=== PATIENT | male | born 1975 | race Caucasian/White ===

== ENCOUNTER 2017-11-04 11:53 | Emergency (ER) | payer MEDICAID, OTHER ==
[~2017-11-04] VITALS: Wt 72.6 kg
[2017-11-04 13:13] LABS: BASOPHILS % 0.6 % (0.0-2.0); EOSINOPHILS # 0.1 10^3/ul (0.0-0.5); EOSINOPHILS % 1.7 % (0.0-7.0); HEMATOCRIT 38.7 % (42.0-52.0); LYMPHOCYTES # 2.3 10^3/ul (0.8-2.9); LYMPHOCYTES % 42.7 % (15.0-51.0); MEAN CORPUSCULAR HEMOGLOBIN 31.7 pg (29.0-33.0); MEAN CORPUSCULAR HGB CONC 36.2 g/dl (32.0-37.0); MEAN CORPUSCULAR VOLUME 87.8 fl (82.0-101.0); MEAN PLATELET VOLUME 8.8 fl (7.4-10.4); MONOCYTE # 0.4 10^3/ul (0.3-0.9); MONOCYTES % 8.1 % (0.0-11.0); NEUTROPHIL # 2.5 10^3/ul (1.6-7.5); NEUTROPHILS % 46.3 % (39.0-77.0); PLATELET COUNT 330 10^3/UL (140-415); RED BLOOD COUNT 4.41 10^6/ul (4.70-6.10); RED CELL DISTRIBUTION WIDTH 11.9 % (11.5-14.5); WHITE BLOOD COUNT 5.4 10^3/ul (4.8-10.8)
--- NOTE | 2017-11-04 13:15 | RADRPT ---
PROCEDURE: XR Chest. CLINICAL INDICATION: Cough TECHNIQUE: Single portable view of the chest was obtained COMPARISON: No priors for comparison FINDINGS: The trachea is midline. The cardiac silhouette is enlarged and pulmonary vascularity are within norm al limits. The lungs are clear. The costophrenic angles are sharp. IMPRESSION: 1. Cardiomegaly. No evidence of acute cardiopulmonary disease. RPTAT: AAPP Physician Ronnie Date Time Electronically viewed and signed by Eber Fong Physician on 11/04/2017 13:14 JL/
[2017-11-04 13:32] LABS: ALBUMIN 4.1 g/dl (3.3-4.9); ALBUMIN/GLOBULIN RATIO 1.2; BILIRUBIN,INDIRECT 0.3 mg/dl (0-1.1); BILIRUBIN,TOTAL 0.3 mg/dl (0.2-1.3); CREATININE 0.76 mg/dl (0.61-1.24); POTASSIUM 3.4 mmol/L (3.5-5.1); TOTAL PROTEIN 7.5 g/dl (6.1-8.1)
[2017-11-04] MEDS ORDERED: SODI30SP2 NS (14:10)
[2017-11-04] MEDS ORDERED: GUAI120S26 PO (14:10)
--- NOTE | 2017-11-04 14:23 | ERD ---
ER Documentation Chief Complaint Chief Complaint cough and epitaxis no longer bleeding HPI 41-year-old male patient with no significant past medical history presents to the ED complaining of nosebleeds that occurred 1 week ago associated with a productive cough that started 1 week ago. States that they tried to stop the bleeding by putting his head backwards and the bleeding stopped by itself. Denies any chest pain, shortness of breath, wheezing, vomiting, emesis, melena, abdominal pain, fever, chills. Denies picking his nose or nasal trauma. Denies any photophobia, blurred vision, gum bleeding or easy bruisability, headache, weakness. ROS All systems reviewed and are negative except as per history of present illness. Medications Home Meds Active Scripts Zvrgyufockx-S-Regkutxirv Hb* (Guaifenesin* DM Syrup) 120 Ml Syrup, 10 ML PO Q4H Y for COUGH, #120 ML Prov:ABDOUL OKEEFE PA-C 11/04/17 Sodium Chloride (Saline Nasal [place]) 30 Ml [place], 30 ML NS BID, #1 SPRAY Prov:ABDOUL OKEEFE PA-C 11/04/17 Allergies Allergies: Coded Allergies: No Known Allergy (Unverified , 11/04/17) Physical Exam Vitals Vital Signs Date Time Temp Pulse Resp B/P Pulse Ox O2 Delivery O2 Flow Rate FiO2 11/04/17 11:57 98.5 68 20 153/86 98 Physical Exam Const: Uec-iwu-ejtgnfmds, well-nourished. In no acute distress. Head: Atraumatic, normocephalic Eyes: Normal Conjunctiva without injection. No purulent discharge. PERRLA. EOMI ENT: Normal external ear. Ear canal without erythema. Tympanic membrane pearly cedillo without effusion or bulging. Nasal canal clear with normal turbinates. No deformities. Anterior bilateral origin of epistaxis noted. Moist oropharynx without tonsillar exudates. Non-erythematous pharynx. Uvula midline. No drooling. No trismus. Neck: No cervical midline tenderness. Full range of motion. No meningismus. No cervical lymphadenopathy. No JVD. Resp: Clear to auscultation bilaterally. No wheezing, rhonchi, rales, or crackles. No accessory muscle use. No retractions. Cardio: Regular rate and rhythm. No murmurs, rubs or gallops. Abd: Soft, non tender, non distended. Normal bowel sounds. No palpable masses. No rebound tenderness. No guarding. Negative McBurney's Point. Negative Bird's Sign. Skin: Normal skin turgor. No petechiae or rashes Back: No midline tenderness. No CVA tenderness. Ext: No cyanosis, or edema. Distal pulses intact bilaterally. Neur: Awake and alert. Normal gait. Normal coordination. Cranial Nerves II- VII intact. Normal finger to nose. Muscle strength 5/5. Sensation intact. Psych: Normal Mood and Affect Result Diagram: 11/04/17 1300 11/04/17 1300 Results 24 hrs Laboratory Tests Test 11/04/17 13:00 White Blood Count 5.410^3/ul Red Blood Count 4.4110^6/ul Hemoglobin 14.0g/dl Hematocrit 38.7% Mean Corpuscular Volume 87.8fl Mean Corpuscular Hemoglobin 31.7pg Mean Corpuscular Hemoglobin Concent 36.2g/dl Red Cell Distribution Width 11.9% Platelet Count 41819^3/UL Mean Platelet Volume 8.8fl Neutrophils % 46.3% Lymphocytes % 42.7% Monocytes % 8.1% Eosinophils % 1.7% Basophils % 0.6% Nucleated Red Blood Cells % 0.0/100WBC Neutrophils # 2.510^3/ul Lymphocytes # 2.310^3/ul Monocytes # 0.410^3/ul Eosinophils # 0.110^3/ul Basophils # 0.010^3/ul Nucleated Red Blood Cells # 0.010^3/ul Sodium Level 144mmol/L Potassium Level 3.4mmol/L Chloride Level 103mmol/L Carbon Dioxide Level 29mmol/L Anion Gap 15 Blood Urea Nitrogen 14mg/dl Creatinine 0.76mg/dl Glucose Level 111mg/dl Calcium Level 9.0mg/dl Total Bilirubin 0.3mg/dl Direct Bilirubin 0.00mg/dl Indirect Bilirubin 0.3mg/dl Aspartate Amino Transf (AST/SGOT) 64IU/L Alanine Aminotransferase (ALT/SGPT) 128IU/L Alkaline Phosphatase 127IU/L Total Protein 7.5g/dl Albumin 4.1g/dl Globulin 3.40g/dl Albumin/Globulin Ratio 1.20 Procedures/MDM 41-year-old male patient with no significant past medical history presents to the ED complaining of epistaxis, productive cough that started 1 week ago. Patient is afebrile and nontoxic-appearing. Patient has normal vital signs. Chest x-ray was ordered to further evaluate patient. CBC, CMP was ordered to further evaluate patient. CBC: No leukocytosis. No e/o of systemic infection. No e/o anemia. No thrombocytopenia. CMP: No e/o severe acidosis, alkalosis, renal failure, diabetic ketoacidosis, slightly elevated liver enzymes. Patient was instructed to follow-up with his primary care physician for further evaluation of his elevated liver enzymes as well as cardiomegaly noted on his chest x-ray with a dyslexia teacher. No bilateral leg swelling. No dyspnea on exertion, orthopnea. Low suspicion for anemia, blood disorders, hemophilia, ITP , TTP, posterior epistaxis, intracranial bleed, CHF, acute myocardial infarction , pneumothorax, pneumonia, cardiac tamponade, pulmonary embolism, pleural effusion, AAA, aortic dissection, Boerhaave's syndrome, cardiac dysrhythmias, meningitis, myocarditis, pericarditis, endocarditis, intracranial bleed, seizure , stroke, TIA or other emergent conditions. This was discussed with my supervising physician, Dr. Guido who agreed with the management and discharge plan. Diagnosis: Anterior Epistaxis, Viral URI Discharge medications: Nasal saline spray, Guaifenesin DM Follow up with primary care physician in 1-2 days. Instructed patient to return to the ED sooner for any worsening symptoms. Patient's questions were answered. Patient understood and agreed with discharge plan. Patient discharged stable. Departure Diagnosis: Primary Impression: Epistaxis Additional Impression: Cough Condition: Stable Patient Instructions: Epistaxis (Adult), Uri, Viral, No Abx (Adult), Liver Panel Referrals: COMMUNITY CLINICS YOU HAVE RECEIVED A MEDICAL SCREENING EXAM AND THE RESULTS INDICATE THAT YOU DO NOT HAVE A CONDITION THAT REQUIRES URGENT TREATMENT IN THE EMERGENCY DEPARTMENT. FURTHER EVALUATION AND TREATMENT OF YOUR CONDITION CAN WAIT UNTIL YOU ARE SEEN IN YOUR DOCTORS OFFICE WITHIN THE NEXT 1-2 DAYS. IT IS YOUR RESPONSIBILITY TO MAKE AN APPOINTMENT FOR FOLOW-UP CARE. IF YOU HAVE A PRIMARY DOCTOR --you should call your primary doctor and schedule an appointment IF YOU DO NOT HAVE A PRIMARY DOCTOR YOU CAN CALL OUR PHYSICIAN REFERRAL HOTLINE AT IF YOU CAN NOT AFFORD TO SEE A PHYSICIAN YOU CAN CHOSE FROM THE FOLLOWING [facility] [id number] [facility] [address] [facility] [address] [facility] [address] [facility] [address] [facility]. [facility]. [address] [facility]. [facility] YOU HAVE RECEIVED A MEDICAL SCREENING EXAM AND THE RESULTS INDICATE THAT YOU DO NOT HAVE A CONDITION THAT REQUIRES URGENT TREATMENT IN THE EMERGENCY DEPARTMENT. FURTHER EVALUATION AND TREATMENT OF YOUR CONDITION CAN WAIT UNTIL YOU ARE SEEN IN YOUR DOCTORS OFFICE WITHIN THE NEXT 1-2 DAYS. IT IS YOUR RESPONSIBILITY TO MAKE AN APPOINTMENT FOR FOLOW-UP CARE. IF YOU HAVE A PRIMARY DOCTOR --you should call your primary doctor and schedule and appointment IF YOU DO NOT HAVE A PRIMARY DOCTOR YOU CAN CALL OUR PHYSICIAN REFERRAL HOTLINE AT . IF YOU CAN NOT AFFORD TO SEE A PHYSICIAN YOU CAN CHOSE FROM THE FOLLOWING [facility], [facility]: [facility] [address] [place] [address] [facility] [address] [place] [address] [facility] [address] [place] [address] [facility] URGENT CARE/SPECIALTIES Additional Instructions: Visite a avila mdico maana para un EXAMEN para herson evaluacin adicional de tanner enzimas hepticas altas y la referencia para porter a un cardilogo para avila cardiomegalia. Regrese a estas instalaciones si no se mejora gagandeep esperbamos o gagandeep le dijimos - fiebre, falta de aliento, hinchazn de las piernas, vmitos, hemorragia nasal que no se detiene. ABDOUL OKEEFE PA-C Nov 04, 2017 14:23
== END 2017-11-04 14:31 | disposition home or self-care (01) ==
LOC: FTE 11:53
DX: R04.0 Epistaxis (principal)
CPT/HCPCS: 71010; 80053; 85025; Z7502